=== PATIENT | male | born 1960 | race Two or more races ===

== ENCOUNTER 2019-12-01 18:20 | Emergency (ER) | payer OTHER ==
[~2019-12-01] VITALS: Ht 177.8 cm; Wt 91.0 kg
[2019-12-01] MEDS ORDERED: SODIUM CHLORIDE FLUSH 10ML SYR IVF ONE (19:00)
[2019-12-01 19:14] LABS: BASOPHILS # (AUTO) 0.04 x10^3/uL (0-0.1); BASOPHILS % (AUTO) 1 % (0-1); EOSINOPHILS % (AUTO) 3 % (1-7); LYMPHOCYTES # (AUTO) 2.27 x10^3/uL (1-3.4); LYMPHOCYTES % (AUTO) 32 % (22-44); MD NO; MEAN CORPUSCULAR HEMOGLOBIN 30.7 pg (27.5-34.5); MEAN CORPUSCULAR HGB CONC 33.3 g/dL (33.2-36.2); MEAN CORPUSCULAR VOLUME 92.4 fL (81-97); MEAN PLATELET VOLUME 8.1 fL (7.4-10.4); MONOCYTES # (AUTO) 0.56 x10^3/uL (0.2-0.8); MONOCYTES % (AUTO) 8 % (2-9); NEUTROPHILS # (AUTO) 4.03 x10^3/uL (1.8-6.8); NEUTROPHILS % (AUTO) 57 % (42-75); PLATELET COUNT 225 x10^3/uL (130-400); RED BLOOD COUNT 5.12 x10^6/uL (4.38-5.82); RED CELL DISTRIBUTION WIDTH 15.1 % (9.4-14.8)
[2019-12-01 19:25] LABS: ALBUMIN 3.7 g/dL (3.4-5.0); ANION GAP 4 mmol/L (5-15); CALCIUM 8.7 mg/dL (8.5-10.1); CHLORIDE 114 mmol/L (98-107); CREATININE 0.91 mg/dL (0.7-1.3)
--- NOTE | 2019-12-01 19:53 | NUR ---
PT TO CT
[2019-12-01] MEDS ORDERED: OMNIPAQUE 350 MG/ML, 100ML BOTTLE ONE (20:08)
[2019-12-01 20:26] VITALS: BP 129/73
--- NOTE | 2019-12-01 20:26 | NUR ---
TASK RN: PT. REPORTS NO COUCH AT THIS TIME. ALL SCANS RESULTED; AWAITING PROVIDER RECHECK. PT. EATING GUMMY SNACKS AT THIS TIME. NO DISTRESS NOTED. VS UPDATED AND STABLE. ALL SAFETY MEASURES OBSERVED.
--- NOTE | 2019-12-01 20:39 | NUR ---
TASK RN: DR. BARCENAS IN TO DISCUSS PLAN FOR D/C WITH PT. AND FAMILY.
== END 2019-12-01 21:02 | disposition home or self-care (01) ==
LOC: ED 21:00
DX: G43.C1 Periodic headache syndromes in child or adult, intractable (principal)
CPT/HCPCS: 36415; 70450; 70496; 70498; 80048; 82040; 85025; 99284; Q9967

== ENCOUNTER 2020-01-20 14:47 | Emergency (ER) | payer OTHER ==
[~2020-01-20] VITALS: Ht 177.8 cm; Wt 95.8 kg
--- NOTE | 2020-01-20 17:31 | NUR ---
SPOTLIGHT OPERATOR: PT TO ROOM FROM [facility]
--- NOTE | 2020-01-20 17:56 | NUR ---
Axel prather in ED - 01/20/20 at 1805 by FÁTIMA CHRISTIAN TSANG RN. DISCUSSED THAT NO ANTIBIOTIC ORDER REC'D YET. SHARAN TO F/U
[2020-01-20 18:04] VITALS: BP 141/87
--- NOTE | 2020-01-20 18:05 | NUR ---
PT WORKS AT [employer]. 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 [employer] INSTRUCTED HIM THAT HE HAD TO LEAVE WORK AND COULD NOT RETURN UNLESS HE TESTS NEG FOR COVI-19. PT ALSO C/O UPPER RIGHT TOOTH PAIN "IT FELL OUT AND I THINK IT MIGHT BE INFECTED" BP, SP02 MONITORING IN PLACE. PT INSTRUCTED TO KEEP FACEMASK ON AT ALL TIMES. CALL LIGHT W/I REACH
--- NOTE | 2020-01-20 19:01 | NUR ---
Patient/Caregiver given discharge instructions and they have confirmed that they understand the instructions. Patient ambulatory with steady gait.
== END 2020-01-20 19:06 | disposition home or self-care (01) ==
LOC: ED 19:00
DX: R06.02 Shortness of breath (principal); G43.909 Migraine, unspecified, not intractable, without status migrainosus; F17.200 Nicotine dependence, unspecified, uncomplicated
CPT/HCPCS: 71046; 99283